=== PATIENT | female | born 1990 | race Asian ===

== ENCOUNTER 2017-10-08 01:08 | Emergency (ER) | payer BC ==
[~2017-10-08] VITALS: Ht 170.2 cm; Wt 68.0 kg
[2017-10-08 01:20] VITALS: BP 149/89
[2017-10-08 03:45] LABS: Basophils # (auto) 0 uL; Basophils % (auto) 0.5 % (0.0-2.0); Eosinophils # (auto) 0 uL; Eosinophils % (auto) 0.8 % (0.0-7.0); Hematocrit 39.5 % (36.0-46.0); Lymphocytes # (auto) 1.8 uL; Lymphocytes % (auto) 29.2 % (10.0-50.0); Mean Corpuscular Hemoglobin 27.7 pg (28.0-32.0); Mean Corpuscular Volume 83.9 fL (80.0-100.0); Monocytes # (auto) 0.7 uL; Monocytes % (auto) 11.9 % (0.0-12.0); Neutrophils # (auto) 3.5 uL; Neutrophils % (auto) 57.6 % (37.0-80.0); Nucleated Red Blood Cells % 0.1 %; Platelet Count (auto) 154 10^3/uL (140-450); Red Blood Cells 4.71 10^6/uL (4.0-5.20); Red Cell Distribution Width 13.6 % (11.8-14.3)
[2017-10-08 04:08] LABS: Albumin 3.7 g/dL (3.4-5.0); BUN/Creatinine Ratio 11.6; Bilirubin, Total 0.5 mg/dL (0.2-1.0); Calcium 8.9 mg/dL (8.5-10.1); Potassium 3.4 mmol/L (3.5-5.1); Total Protein 7.8 g/dL (6.4-8.2)
[2017-10-08] MEDS ORDERED: cefTRIAXone 1GM/10ml IVPUSH 10 ML IV ONE (04:30)
[2017-10-08] MEDS ORDERED: cefTRIAXone SOD 1,000 MG VL ONE (04:49)
[2017-10-08] MEDS ORDERED: LIDOCAINE 1% (LOCAL ANESTH.) PF 5ml SDV ONE (04:49)
[2017-10-08] MEDS ORDERED: cefTRIAXone W LIDOCAINE 1 GM IM IM ONE (05:00)
== END 2017-10-08 05:20 | disposition home or self-care (01) ==
LOC: ER 01:11
DX: J02.9 Acute pharyngitis, unspecified (principal); J06.9 Acute upper respiratory infection, unspecified; Z88.1 Allergy status to other antibiotic agents
CPT/HCPCS: 36415; 71045; 80053; 85025; 96372; 99285; J0696